=== PATIENT | male | born 1950 | race Caucasian/White ===

== ENCOUNTER 2018-11-19 10:55 | Inpatient (IN) | payer MEDICARE, BC ==
[~2018-11-19] VITALS: Ht 182.9 cm; Wt 79.4 kg
[2018-11-19] MEDS ORDERED: ASPI-869 PO (11:10)
[2018-11-19] MEDS ORDERED: DOCU100C36 PO (11:10)
[2018-11-19] MEDS ORDERED: ALPR1TAB PO (11:10)
[2018-11-19] MEDS ORDERED: AMLO5TAB9 PO (11:10)
--- NOTE | 2018-11-19 11:13 | NUR ---
pt is in room #2b. dr Aponte evaluated the pt.
--- NOTE | 2018-11-19 11:47 | NUR ---
report was given to rn mhu. pt was transfered to room #322.
[2018-11-19 13:00] VITALS: BP 163/88
[2018-11-19] MEDS ORDERED: ZOLPIDEM 5 MG TABLET PO PRN (13:15)
[2018-11-19] MEDS ORDERED: ACETAMINOPHEN 325 MG TABLET PO PRN (13:15)
[2018-11-19] MEDS ORDERED: MAGNESIUM HYDROXIDE 30 ML LIQUID UDC PO PRN (13:15)
[2018-11-19] MEDS ORDERED: MAG HYDROX/AL HYDROX/SIMETH 30 ML LIQUID UDC PO PRN (13:15)
--- NOTE | 2018-11-19 15:00 | NUR ---
Completed admission, patient on 5150, and has sitter at bedside. Patient has no plan with suicidal ideation. He states that he has had bouts of depression in the past however has not had any event of suicidal ideation. Graham Gonzales RN
[2018-11-19 16:00] VITALS: BP 157/83
--- NOTE | 2018-11-19 17:00 | NUR ---
Dr Witt making rounds, and updated on present orders, and medications to reconcile, and orders written. Graham Gonzales RN
[2018-11-19] MEDS ORDERED: CLONIDINE HCL 0.1 MG TABLET PO PRN (18:30)
--- NOTE | 2018-11-19 20:00 | NUR ---
RECEIVED PATIENT FROM THE DAY SHIFT NURSE ISADORA. PATIENT IS ON 72HR HOLD DUE TO SUICIDAL IDEATION. SITTER IS AT BEDSIDE. ASSESSED PATIENT FOR SI AND SURVEY THE ROOM FOR SAFETY. PATIENT APPEARS TO HAVE MILD ANXIETY AND BECOMES EMOTIONAL WHEN DISCUSSING HIS ISSUES WITH DEPRESSION. PATIENT WAS EDUCATED ON THE NEED TO CONTROL BP FOR IMPROVED HEALTH. COMFORT AND SAFETY PROVIDED.
[2018-11-19] MEDS: AMLODIPINE 5 MG TABLET PO SCH (21:42)
[2018-11-19] MEDS: LORAZEPAM 0.5 MG TABLET PO PRN (21:46)
[2018-11-20 05:56] VITALS: BP 137/86
--- NOTE | 2018-11-20 06:47 | NUR ---
PATIENT RECEIVED ATIVAN AT BEDTIME FOR ANXIETY. FELL ASLEEP AND SLEPT THROUGH THE NIGHT. NO ISSUES AROSE DURING THE SHIFT. PATIENT IS COOPERATIVE AND DENIES SUICIDAL IDEATION OR SELF HARM THOUGHTS OR PLANS.
[2018-11-20 07:54] LABS: BASOPHILS # (AUTO) 0.1 K/uL (0.0-8.0); BASOPHILS % (AUTO) 0.9 % (0.0-2.0); EOSINOPHILS # (AUTO) 0.3 K/uL (0.0-0.7); EOSINOPHILS % (AUTO) 4.4 % (0.0-7.0); HEMATOCRIT 44.9 % (36.7-47.1); HEMOGLOBIN 15.1 g/dL (12.5-16.3); LYMPHOCYTES # (AUTO) 1.7 K/uL (20.0-40.0); LYMPHOCYTES % (AUTO) 29.7 % (20.5-51.5); MEAN CORPUSCULAR HEMOGLOBIN 32.3 uug (23.8-33.4); MEAN CORPUSCULAR HGB CONC 34 g/dL (32.5-36.3); MEAN CORPUSCULAR VOLUME 96.5 fL (73.0-96.2); MONOCYTES # (AUTO) 0.6 K/uL (2.0-10.0); MONOCYTES % (AUTO) 9.8 % (0.0-11.0); NEUTROPHILS # (AUTO) 3.2 K/uL (1.8-8.9); NEUTROPHILS % (AUTO) 55.2 % (38.5-71.5); PLATELET COUNT (AUTO) 217 K/uL (152-348); RED BLOOD CELL COUNT(AUTO) 4.65 MIL/uL (4.06-5.63); WHITE BLOOD COUNT (AUTO) 5.8 K/uL (3.6-10.2)
[2018-11-20 08:00] VITALS: BP 138/82
[2018-11-20 08:13] LABS: THYROID STIMULATING HORMONE 2.154 mIU/mL (0.358-3.740)
[2018-11-20 08:42] LABS: BILIRUBIN,TOTAL 0.7 mg/dL (0.2-1.0); CREATININE 0.7 mg/dL (0.6-1.3); PHOSPHOROUS 3.5 mg/dL (2.5-4.9); POTASSIUM 3.9 mmol/L (3.5-5.1); TOTAL PROTEIN, SERUM 6.5 g/dL (6.4-8.2)
[2018-11-20] MEDS: LORAZEPAM 0.5 MG TABLET PO PRN (11:15)
[2018-11-20] MEDS: AMLODIPINE 5 MG TABLET PO SCH ×2 (11:15→20:34)
[2018-11-20] MEDS: DOCUSATE SODIUM 100 MG CAPSULE PO SCH ×2 (11:15→16:43)
[2018-11-20] MEDS: ASPIRIN EC 325 MG TABLET.DR PO SCH (11:16)
[2018-11-20 11:56] VITALS: BP 138/82
--- NOTE | 2018-11-20 14:19 | NUR ---
resting in bed with sitter and no restlessness noted. with contimue to assess patient affect.
[2018-11-20] MEDS: VENLAFAXINE XR 37.5 MG CAP.SR.24H PO SCH (16:43)
--- NOTE | 2018-11-20 20:20 | NUR ---
RECEIVED PATIENT AWAKE AND ALERT IN BED WITH 1:1 SITTER AT BED SIDE. NO COMPLAINTS OF PAIN OR ACUTE DISTRESS. NO VERBALIZATION OF SUICIDAL IDEATIONS OR DEPRESSIVE THOUGHTS. BED IN LOW POSITION AND LOCKED. 2 SIDE RAILS UP AND LOCKED. CALL LIGHT WITHIN REACH AT ALL TIMES. WILL CONTINUE TO MONITOR.
[2018-11-20] MEDS: TRAZODONE 50 MG TABLET PO SCH (20:33)
--- NOTE | 2018-11-21 05:34 | NUR ---
PATIENT SLEPT COMFORTABLY THROUGHOUT NIGHT. NO COMPLAINTS OF PAIN OR ACUTE DISCOMFORT OBSERVED. VS WNL AND PATIENT IS STABLE. 1:1 SITTER AND ALL SAFETY PRECAUTIONS IN PLACE. CALL LIGHT WITHIN REACH AT ALL TIMES.
--- NOTE | 2018-11-21 07:20 | NUR ---
patient is in his bed, resting comfortably, no s/s of distress noted, all safety and comfort measures are implemented will continue to monitor
[2018-11-21] MEDS: ASPIRIN EC 325 MG TABLET.DR PO SCH (09:00)
[2018-11-21] MEDS: AMLODIPINE 5 MG TABLET PO SCH ×2 (09:03→21:53)
[2018-11-21] MEDS: DOCUSATE SODIUM 100 MG CAPSULE PO SCH ×2 (09:03→17:11)
[2018-11-21] MEDS: VENLAFAXINE XR 37.5 MG CAP.SR.24H PO SCH (09:06)
[2018-11-21 09:17] VITALS: BP 127/84
--- NOTE | 2018-11-21 10:12 | NUR ---
Firearms Report: community arts worker completed and submitted a [employer] firearms report for a 5150 DTS certification.
--- NOTE | 2018-11-21 12:18 | NUR ---
Initial Discharge Plan: Patient is a 68 year old male who currently lives [place] his farm [[address] [place] [address]; ]. Per patient, he would like to return to his home when ready for discharge. Patient is supported by friends including good friend, Moose Davegonzalez [ ], who patient states will provide transportation upon discharge. dental laboratory worker will continue to collaborate with patient and MD on a safe and proper discharge.
--- NOTE | 2018-11-21 14:43 | NUR ---
14:30 patient went to [facility] to attend group therapy with a sitter, he is very cooperative, no s/s distress noted
[2018-11-21 15:42] VITALS: BP 153/82
[2018-11-21 19:30] VITALS: BP 124/75
[2018-11-21] MEDS: TRAZODONE 50 MG TABLET PO SCH (21:53)
[2018-11-22 03:28] VITALS: BP 102/72
--- NOTE | 2018-11-22 07:20 | NUR ---
patient received sleeping comfortably, no acute episodes noted during night per retail shift leader RN all safety and confort measures are met, will continue to monitor
[2018-11-22] MEDS: DOCUSATE SODIUM 100 MG CAPSULE PO SCH (09:02)
[2018-11-22] MEDS: VENLAFAXINE XR 37.5 MG CAP.SR.24H PO SCH (09:02)
[2018-11-22] MEDS: ASPIRIN EC 325 MG TABLET.DR PO SCH (09:07)
[2018-11-22] MEDS: AMLODIPINE 5 MG TABLET PO SCH (09:07)
[2018-11-22 11:05] VITALS: BP 137/75
--- NOTE | 2018-11-22 11:50 | NUR ---
Social work note: 11/21/2018 @ 1300: making line worker called and spoke with patient good friend and listed Moose POTTS [[phone]] regarding patient prognosis and discharge. Moose expressed concern for patient and would like him to go to a private psych facility to receive further treatment. making line worker explained to Moose that if patient were to transfer to a different facility, that there would need to be an accepting bed and psychiatrist. making line worker also informed Moose that as patient is AxOx4 and is not conserved, that patient would also have to be agreeable to going to a private facility. Moose expressed understanding and that he would research facilities for patient. Per Moose, he will meet with this show card writer on 11/22/2018 at 10:00am. 11/21/2018 @ 8741: making line worker received voicemail from Moose stating that he had arranged a room at [facility] [[address] [place] [address]; ] and to speak with Ambar, director executive communications [[phone]]. 11/21/2018 @ 1500: making line worker called to speak with Ambar at [facility] who states that they are ready to accept patient to their facility in the Mental Health Program. making line worker informed Ambar that patient is now on voluntary status and that Moose needs to speak with patient regarding facility as patient may not want to attend. Ambar expressed understanding and agreed that patient should be decision maker in whether he goes to facility or not. Per Ambar, she will continue to have bed available and staff on stand-by to provide transportation of patient. Ambar instructed this show card writer to follow-up with [facility] education and outreach coordinator. 11/22/2018: making line worker met with Moose at 10:00am. making line worker informed Moose of patient voluntary status and patient prognosis. Per Moose, he would like patient to go to [facility] for further treatment. making line worker expressed understanding and suggested Moose have a conversation with patient. Moose agreed. Moose had conversation with patient and then informed this show card writer that patient was in agreement with leaving [facility] today and going to [facility] Mental Health program. making line worker called and spoke with Dr. Mendoza, who stated that patient will sign AMA as he would like patient to receive further treatment and the facility the patient will be going to is not a hospital. making line worker agreed and will initiate AMA discharge.
--- NOTE | 2018-11-22 12:22 | NUR ---
AMA DC NOTE: Patient signed voluntary yesterday, 11/21/2018, and chosen to leave against medical advice today. Patient has been explained the risks of leaving against medical advice and verbalizes understanding. Patient has signed AMA paperwork and it has been placed in patient chart. Patient states he will be going to [facility] [facility] [place] [address]; ] Mental Health Unit to receive further psychiatric treatment. public health worker called and spoke with study abroad coordinator, [facility], who states they are ready to accept the patient and have an available bed. Per Laurence, patient will receive transportation from Sri, web site designer, at [facility]. Laurence further states that patient will follow-up with psychiatrist, Dr. Donnell Escoto. Patient is AxOx4, denies suicidal ideation, is able to plan for self-care, and is aware and agreeable with his choice of leaving hospital. public health worker has provided patient with lists of Medicare-accepting psychiatrist's and clinical psychologist's. public health worker has spoken with patient good friend, Moose Prieto [[phone]], who is aware and agreeable with patient choice to go to [facility]. public health worker has faxed continuing care packet to facility [[phone]].
--- NOTE | 2018-11-22 12:44 | NUR ---
Patient was admitted on 5150, but them was voluntary status. patient is leaving AMA, his friend Moose Prieto had arranged a room at [facility] [[address] [place] [address]; ] Moose had conversation with patient and then informed this publications writer that patient was in agreement with leaving [facility] today and going to [facility] Mental Health program. wine cellar worker called and spoke with Dr. Mendoza, who stated that patient will sign AMA as he would like patient to receive further treatment and the facility the patient will be going to is not a hospital. wine cellar worker agreed and will initiate AMA discharge. All valuables are returned, forms are signed, ID band removed
== END 2018-11-22 13:00 | disposition left against medical advice (07) | DRG 885 ==
LOC: ER 10:55 → MEDSURG3 12:03 → GPSOV3 12:15
PROVIDERS: ADMIT Psychiatry & Neurology Psychiatry; ATTEND Internal Medicine
DX: F33.2 Major depressive disorder, recurrent severe without psychotic features (principal); D68.59 Other primary thrombophilia; Z85.47 Personal history of malignant neoplasm of testis; Z79.82 Long term (current) use of aspirin; Z79.899 Other long term (current) drug therapy; F17.211 Nicotine dependence, cigarettes, in remission; Z74.09 Other reduced mobility; J44.9 Chronic obstructive pulmonary disease, unspecified; I70.0 Atherosclerosis of aorta; I10 Essential (primary) hypertension
CPT/HCPCS: 36415; 71045; 83735; 84100; 84443; 85025; 93005; A4663